=== PATIENT | female | born 1975 ===

== ENCOUNTER 2021-09-05 20:44 | Emergency (ER) | payer OTHER ==
[2021-09-05] MEDS ORDERED: Acetaminophen/oxyCODONE 325-5 MG Tab PO ONE (21:28)
[2021-09-05] MEDS ORDERED: Ondansetron 4 MG Tab.DIS PO ONE (21:28)
== END 2021-09-05 22:28 | disposition home or self-care (01) ==
LOC: DL.ED 20:44
DX: S62.235A Other nondisplaced fracture of base of first metacarpal bone, left hand, initial encounter for closed fracture (principal); X50.0XXA Overexertion from strenuous movement or load, initial encounter
CPT/HCPCS: 73140; 99283; A9270